=== PATIENT | female | born 1965 | race Caucasian/White ===

== ENCOUNTER 2017-06-08 06:35 | Emergency (ER) | payer MEDICAID ==
[~2017-06-08] VITALS: Ht 162.6 cm; Wt 84.1 kg
[~2017-06-08 06:35] MED LIST: ALB0.5UD IH; ASPI-1265 PO; CARB200T PO; LEVO50TA8 PO; MECL12.584 PO; MONT10TA21 PO; SIMV20TA5 PO
[2017-06-08] MEDS ORDERED: dexamethasone sod phosphate 10mg/ml inj IV STA (06:57)
[2017-06-08] MEDS ORDERED: PRED5TAB PO (09:16)
[2017-06-08 09:34] VITALS: BP 142/85
== END 2017-06-08 09:36 | disposition home or self-care (01) ==
LOC: ER 06:35
DX: J02.9 Acute pharyngitis, unspecified (principal); M54.2 Cervicalgia; R59.1 Generalized enlarged lymph nodes; I10 Essential (primary) hypertension; J45.909 Unspecified asthma, uncomplicated; Z98.890 Other specified postprocedural states; Z88.8 Allergy status to other drugs, medicaments and biological substances; Z79.82 Long term (current) use of aspirin; Z79.899 Other long term (current) drug therapy; Z91.013 Allergy to seafood
CPT/HCPCS: 70490; 96374; 99284; J1100; J7030

== ENCOUNTER 2017-10-02 20:13 | Emergency (ER) | payer MEDICARE, MEDICAID ==
[~2017-10-02] VITALS: Ht 558.9 cm; Wt 77.0 kg
[~2017-10-02 20:13] MED LIST changes: +PRED5TAB PO
[2017-10-02] MEDS ORDERED: albuterol 2.5 MG/3 ML nebule NEB ONE (20:35)
[2017-10-02] MEDS ORDERED: dexamethasone sod phosphate 10mg/ml inj PO STA (22:28)
[2017-10-02] MEDS ORDERED: ipratropium/albuterol 3ml nebule NEB ONE (22:30)
[2017-10-02] MEDS ORDERED: PRED50TA PO (23:21)
[2017-10-02 23:29] VITALS: BP 140/69
== END 2017-10-02 23:34 | disposition home or self-care (01) ==
LOC: ER 20:14
DX: J45.901 Unspecified asthma with (acute) exacerbation (principal); I10 Essential (primary) hypertension; M19.90 Unspecified osteoarthritis, unspecified site; Z98.890 Other specified postprocedural states; Z86.73 Personal history of transient ischemic attack (TIA), and cerebral infarction without residual deficits; Z88.8 Allergy status to other drugs, medicaments and biological substances; Z91.013 Allergy to seafood; Z88.7 Allergy status to serum and vaccine; Z79.82 Long term (current) use of aspirin; Z79.899 Other long term (current) drug therapy
CPT/HCPCS: 94640; 94760; 99284; J1100

== ENCOUNTER 2017-12-28 12:38 | Emergency (ER) | payer MEDICARE, MEDICAID ==
[~2017-12-28] VITALS: Ht 160 cm; Wt 84.1 kg
[~2017-12-28 12:38] MED LIST changes: +PRED50TA PO
[2017-12-28 12:40] VITALS: BP 135/78
[2017-12-28] MEDS ORDERED: ketorolac tromethamine 15mg/ml inj. IM ONE (13:35)
[2017-12-28] MEDS ORDERED: CYCL-1 PO (14:03)
[2017-12-28 14:34] LABS: COLOR,URINE YELLOW (Yellow); GLUCOSE, URINE NEGATIVE (Neg); KETONES,URINE NEGATIVE (Neg); LEUKOCYTE ESTERASE ,URINE NEGATIVE (Neg); NITRITES, URINE NEGATIVE (Neg); OCCULT BLOOD,URINE NEGATIVE (Neg); PROTEIN,URINE NEGATIVE (Neg); UROBILINOGEN,URINE 0.2 E.U/dL (0.2-1.0)
[2017-12-28 14:40] LABS: UA COLLECTION TYPE CLN CATCH MIDSTREAM
[2017-12-28 14:41] LABS: CLARITY,URINE SLIGHTLY CLOUDY (Clear)
[2017-12-28 14:42] LABS: BACTERIA,URINE FEW /HPF (Neg); MUCUS STRANDS MANY /LPF (Neg); RBC,URINE 0-2 /HPF (0-2); SQUAMOUS EPITHELIAL CELL,UR MANY /LPF (FEW); WBC,URINE 0-4 /HPF (0-4)
== END 2017-12-28 14:56 | disposition home or self-care (01) ==
LOC: ER 12:39
DX: S39.012A Strain of muscle, fascia and tendon of lower back, initial encounter (principal); M54.42 Lumbago with sciatica, left side; I10 Essential (primary) hypertension; J45.909 Unspecified asthma, uncomplicated; M19.90 Unspecified osteoarthritis, unspecified site; Z86.73 Personal history of transient ischemic attack (TIA), and cerebral infarction without residual deficits; Z91.013 Allergy to seafood; Z88.8 Allergy status to other drugs, medicaments and biological substances; Z79.82 Long term (current) use of aspirin; Z79.899 Other long term (current) drug therapy; X58.XXXA Exposure to other specified factors, initial encounter; Y93.89 Activity, other specified; Y92.89 Other specified places as the place of occurrence of the external cause; Y99.8 Other external cause status
CPT/HCPCS: 72170; 81001; 96372; 99285; J1885